=== PATIENT | female | born 1960 | race Caucasian/White ===

== ENCOUNTER 2016-04-28 07:21 | Outpatient (CLI) ==
[2015-07-26 16:55] VITALS: BMI 33.6
--- NOTE | 2016-04-28 08:46 | US ---
EXAM: ULTRASOUND AORTA HISTORY: Aortic aneurysm FINDINGS: Ultrasound aorta. Real time mathews-scale, color Doppler imaging and spectral analysis perf ormed. 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 This caliber is u p from 2.8 cm previously on 05/17/2015.
== END 2016-04-28 07:22 | disposition home or self-care (01) ==
LOC: RAD 07:21
PROVIDERS: ATTEND Physician Assistant Medical
DX: I71.4 Abdominal aortic aneurysm, without rupture (principal)
CPT/HCPCS: 76775